=== PATIENT | male | born 1955 | race Caucasian/White ===

== ENCOUNTER 2019-06-12 09:37 | Emergency (ER) | payer BC ==
[2019-06-12 10:38] VITALS: BP 112/61
[2019-06-12] MEDS ORDERED: Albuterol/Ipratropium NEB.SOL* Albuterol 2.5 MG/Ipratropium 0.5 MG 3 ML INH ONE (10:48)
--- NOTE | 2019-06-12 10:50 | UC ---
Respiratory Complaint HPI - HPI Summary HPI Summary: 63-year-old male who has been ill for 15 days with head congestion and cold symptoms cough and now has sinus pressure with purulent nasal coryza and coughing up greenish sputum. He denies any shortness of breath. He is not a smoker however his does smoke. She states she smokes outside rather than in the house. - History of Current Complaint Chief Complaint: UCRespiratory Stated Complaint: COUGH CONGESTION Time Seen by Provider: 06/12/19 10:25 Hx Obtained From: Patient Onset/Duration: Gradual Onset Timing: Constant Severity Initially: Mild Severity Currently: Moderate Pain Intensity: 0 Character: Cough: Productive - Occasional productive Aggravating Factors: Nothing Alleviating Factors: Nothing Associated Signs And Symptoms: Positive: URI, Nasal Congestion, Sinus Discomfort - Allergies/Home Medications Allergies/Adverse Reactions: Allergies Allergy/AdvReac Type Severity Reaction Status Date / Time No Known Allergies Allergy Verified 06/12/19 10:33 Home Medications: Home Medications Fluticasone-Salmeterol 250-50* [Advair Diskus 250-50*] 1 puff INH BID 06/12/19 [ History Confirmed 06/12/19] Lisinopril [Zestril 40 MG-] 40 mg PO DAILY 06/12/19 [History Confirmed 06/12/19] Metoprolol Tartrate TAB* [Lopressor TAB*] 25 mg PO BID 06/12/19 [History Confirmed 06/12/19] Omeprazole (Nf) [Prilosec (NF)] 40 mg PO DAILY 06/12/19 [History Confirmed 06/12] PMH/Surg Hx/FS Hx/Imm Hx Previously Healthy: Yes Cardiovascular History: Hypertension, Other - History of irregular heart rhythm Respiratory History: COPD GI/ History: Gastroesophageal Reflux - Surgical History Surgical History: Yes Surgery Procedure, Year, and Place: spleenectomy. appy. hernia - Family History Known Family History: Positive: Non-Contributory - Social History Lives: With Family Alcohol Use: None Substance Use Type: None Smoking Status (MU): Former Smoker Length of Time of Smoking/Using Tobacco: 1 PPD x 36 Years When Did the Patient Quit Smoking/Using Tobacco: ~2001 Household Exposure Type: Cigarettes - Immunization History Most Recent Tetanus Shot: unknown Review of Systems All Other Systems Reviewed And Are Negative: Yes ENT: Positive: Nasal Discharge, Sinus Congestion, Sinus Pain/Tenderness Respiratory: Positive: Cough - Occasional productive cough of greenish sputum. No shortness of breath. Is Patient Immunocompromised?: No Physical Exam Triage Information Reviewed: Yes Appearance: Well-Appearing, No Pain Distress, Well-Nourished Vital Signs: Initial Vital Signs Temp 98 F 06/12/19 10:31 Pulse 72 06/12/19 10:31 Resp 18 06/12/19 10:31 BP 112/61 06/12/19 10:31 Pulse Ox 96 06/12/19 10:31 Vital Signs Reviewed: Yes Eyes: Positive: Conjunctiva Clear ENT: Positive: Pharynx normal - Yellowish purulent nasal coryza., Nasal congestion, Nasal drainage - Left turbinates inflamed with yellow purulent coryza., TMs normal, Sinus tenderness, Uvula midline Neck: Positive: Supple, Nontender, No Lymphadenopathy Respiratory: Positive: No respiratory distress, No accessory muscle use, Rhonchi , Wheezing - Scattered rhonchi with mild wheezing and forced expiration. No distress, good air movement. Cardiovascular: Positive: RRR, No Murmur, Pulses Normal, Brisk Capillary Refill Musculoskeletal Exam: Normal Neurological Exam: Normal Psychological Exam: Normal Skin Exam: Normal Respiratory Course/Dx - Course Course Of Treatment: DuoNeb treatment: The patient felt like he had better air movement following the DuoNeb treatment. He continues to have some mild wheezing in the left upper lobe but better air movement and less wheezing throughout. I'm going to treated for sinus infection as well as prednisone taper for the bronchitis to follow-up with his primary care provider in the next or 3-4 days no improvement. - Differential Dx/Diagnosis Provider Diagnosis: Sinusitis, Bronchitis Discharge ED - Sign-Out/Discharge Documenting (check all that apply): Patient Departure All imaging exams completed and their final reports reviewed: No Studies - Discharge Plan Condition: Good Disposition: HOME Prescriptions: Amoxicillin/Clavulanate TAB* [Augmentin TAB 875*] 875 mg PO BID 10 Days #20 tab predniSONE 10 mg TAB [Deltasone 10 MG TAB*] 10 mg PO DAILY 12 Days #30 tab Patient Education Materials: Sinusitis (ED), Acute Bronchitis (ED) Referrals: Robi Norton MD [Primary Care Provider] - Additional Instructions: Take the Augmentin and the prednisone with food. Follow-up with your primary care provider if no improvement in 3 or 4 days. Go to the emergency room if any worsening symptoms. - Billing Disposition and Condition Condition: GOOD Disposition: Home
== END 2019-06-12 11:25 | disposition home or self-care (01) ==
LOC: UCCORT 09:37
DX: J32.9 Chronic sinusitis, unspecified (principal); J44.9 Chronic obstructive pulmonary disease, unspecified; I10 Essential (primary) hypertension; K21.9 Gastro-esophageal reflux disease without esophagitis; Z87.891 Personal history of nicotine dependence; Z79.899 Other long term (current) drug therapy; Z79.51 Long term (current) use of inhaled steroids
CPT/HCPCS: 99202; A9270-GY; G0463